=== PATIENT | male | born 1960 | race Caucasian/White ===

== ENCOUNTER 2023-03-20 14:09 | Emergency (ER) | payer MEDICARE, OTHER ==
[2023-03-20] MEDS ORDERED: Sodium Chloride 0.9% 10 ML Syringe FLUSH PRN (14:16)
== END 2023-03-20 15:25 | disposition home or self-care (01) ==
LOC: KA.ED 14:09
DX: I48.92 Unspecified atrial flutter (principal)
CPT/HCPCS: 71045; 93010; 99284; 99285